=== PATIENT | female | born 1980 ===

== ENCOUNTER 2020-04-09 21:04 | Emergency (ER) | payer SELFPAY ==
--- NOTE | 2020-04-09 23:03 | EKG REPORT ---
SEVERITY:- ABNORMAL ECG - SINUS OR ECTOPIC ATRIAL RHYTHM SHORT AK INTERVAL, ACCELERATED AV CONDUCTION : Confirmed by: Eleazar Del Toro MD 09-Apr-2020 23:02:35
--- NOTE | 2020-04-09 23:18 | RADIOLOGY REPORT (SQ) ---
EXAM DESCRIPTION: XR CHEST 2 VIEWS COMPLETED DATE/TME: 04/09/2020 22:52 CLINICAL HISTORY: chest pain, sob COMPARISON: None. FINDINGS: Single frontal radiograph view of the chest. Cardiomediastinal silhouette: Normal size and contour. Lungs: No consolidation, pneumothorax, or pleural effusion. Hyperinflation. Bones: No acute osseous abnormality. Upper abdomen: No abnormality identified. IMPRESSION: 1. No acute pneumonic process identified. 2. Hyperinflation of the lungs. This could be seen with reactive airways disease or obstructive lung disease
[2020-04-09 23:29] LABS: ABSOLUTE BASOPHILS # (AUTO) 0.1 10^3/uL (0.0-0.2); ABSOLUTE EOSINOPHILS # (AUTO) 0.4 10^3/uL (0.0-0.6); ABSOLUTE LYMPHOCYTES (AUTO) 3.9 10^3/uL (0.5-4.7); ABSOLUTE MONOCYTES (AUTO) 0.8 10^3/uL (0.1-1.4); ABSOLUTE NEUT (AUTO) 4.8 10^3/uL (1.7-8.2); BASOPHILS % (AUTO) 0.9 % (0-2); EOSINOPHILS % (AUTO) 3.8 % (0-6); HEMATOCRIT 43.9 % (36.0-47.0); HEMOGLOBIN 14.8 g/dL (12.0-15.5); LYMPHOCYTES % (AUTO) 39.2 % (13-45); MEAN CORPUSCULAR HEMOGLOBIN 31.6 pg (27.0-33.4); MEAN CORPUSCULAR HGB CONC 33.8 g/dL (32.0-36.0); MEAN CORPUSCULAR VOLUME 93 fl (80-97); MONOCYTES % (AUTO) 7.7 % (3-13); PLATELET COUNT 226 10^3/uL (150-450); RED CELL DISTRIBUTION WIDTH 12.8 % (11.5-14.0); SEGMENTED NEUTROPHILS % (AUTO) 48.4 % (42-78); TOTAL CELLS COUNTED % (AUTO) 100 %
[2020-04-09 23:52] LABS: ALBUMIN 4.7 g/dL (3.5-5.0); ALKALINE PHOSPHATASE 51 U/L (38-126); ANION GAP 9 (5-19); ASPARTATE AMINO TRANSFERASE 17 U/L (14-36); BILIRUBIN,DIRECT 0.1 mg/dL (0.0-0.4); BILIRUBIN,TOTAL 0.2 mg/dL (0.2-1.3); BLOOD UREA NITROGEN 9 mg/dL (7-20); CARBON DIOXIDE 26 mmol/L (22-30); CHLORIDE 102 mmol/L (98-107); CREATINE KINASE 60 U/L (30-135); GLUCOSE 81 mg/dL (75-110); POTASSIUM 4.2 mmol/L (3.6-5.0); TOTAL PROTEIN 7.7 g/dL (6.3-8.2)
--- NOTE | 2020-04-10 00:01 | ER Document Report ---
ED Medical Screen (RME) - General Chief Complaint: Chest Pain Stated Complaint: CHEST PAIN Time Seen by Provider: 04/09/20 23:43 Notes: Patient presents to the ER for evaluation of chest tightness with pleuritic lung pain that began last . The patient admits to a mild dry cough. She states she has a history of asthma and has used albuterol nebs with some improvement. She denies fever. She denies chills. She denies body aches. She denies known exposures to individuals with COVID-19. Exam- CONSTITUTIONAL: Well appearing in no acute distress PULMONARY: Normal chest rise and fall, no respiratory distress or stridor CARDIOVASCULAR: Regular rate, distal extremities are warm and well perfused I have greeted and performed a rapid initial assessment of this patient. A comprehensive ED assessment and evaluation of the patient, analysis of test results and completion of the medical decision making process will be conducted by additional ED providers. Dictation of this chart was performed using voice recognition software; therefore, there may be some unintended grammatical errors. - Related Data Allergies/Adverse Reactions: Sulfa (Sulfonamide Antibiotics) Allergy (Verified 04/09/20 22:39) Home Medications: prozac, florna, prozosin, advair, spiriva, albuterol Past Medical History - Social History Frequency of alcohol use: None Drug Abuse: None Physical Exam - Vital signs Vitals: Temp Pulse Resp BP Pulse Ox 98.6 F 98 20 113/72 98 04/09/20 21:14 04/09/20 21:14 04/09/20 21:14 04/09/20 21:14 04/09/20 21:14 Course - Vital Signs Vital signs: Temp Pulse Resp BP Pulse Ox 98.6 F 98 20 113/72 98 04/09/20 21:14 04/09/20 21:14 04/09/20 21:14 04/09/20 21:14 04/09/20 21:14 - Laboratory Result Diagrams: 04/09/20 23:15 04/09/20 23:15
[2020-04-10 00:04] LABS: TROPONIN I < 0.012 ng/mL
--- NOTE | 2020-04-10 01:41 | ER Document Report ---
ED Cardiac - General Chief Complaint: Chest Pain Stated Complaint: CHEST PAIN Time Seen by Provider: 04/09/20 23:43 Mode of Arrival: Ambulatory Information source: Patient Notes: ED Medical Screen ([facility]) - General Chief Complaint: Chest Pain Stated Complaint: CHEST PAIN Time Seen by Provider: 04/09/20 23:43 Notes: Patient presents to the ER for evaluation of chest tightness with pleuritic lung pain that began last . The patient admits to a mild dry cough. She states she has a history of asthma and has used albuterol nebs with some imp rovement. She denies fever. She denies chills. She denies body aches. She denies known exposures to individuals with COVID-19. Exam- CONSTITUTIONAL: Well appearing in no acute distress PULMONARY: Normal chest rise and fall, no respiratory distress or stridor CARDIOVASCULAR: Regular rate, distal extremities are warm and well perfused MY NOTES 39-year-old female who works at the [employer] complains of cold-induced asthma and COPD. She was diagnosed at age 34 with COPD but a meat hostess at [facility] advised her she has reactive airway disease. Patient reports she been having diffuse midsternal and epigastric pain for several days. She has been using her inhaler quite frequently since last 1 week ago. Chest x-ray today reveals inte rstitial pattern and COPD-like pattern per radiologist. - Related Data Allergies/Adverse Reactions: Sulfa (Sulfonamide Antibiotics) Allergy (Verified 04/09/20 22:39) Home Medications: prozac, florna, prozosin, advair, spiriva, albuterol Past Medical History - General Information source: Patient - Social History Smoking Status: Current Every Day Smoker Cigarette use (# per day): Yes Chew tobacco use (# tins/day): No Smoking Education Provided: Yes Frequency of alcohol use: None Drug Abuse: None Lives with: Family Family History: Reviewed & Not Pertinent Patient has suicidal ideation: No Patient has homicidal ideation: No Review of Systems - Review of Systems Constitutional: No symptoms reported EENT: No symptoms reported Cardiovascular: No symptoms reported Respiratory: See HPI, Cough, Hurts to breathe, Wheezing Gastrointestinal: No symptoms reported Genitourinary: No symptoms reported Female Genitourinary: No symptoms reported Musculoskeletal: No symptoms reported Skin: No symptoms reported Hematologic/Lymphatic: No symptoms reported Neurological/Psychological: No symptoms reported Physical Exam - Vital signs Vitals: Temp Pulse Resp BP Pulse Ox 98.6 F 98 20 113/72 98 04/09/20 21:14 04/09/20 21:14 04/09/20 21:14 04/09/20 21:14 04/09/20 21:14 Interpretation: Hypotensive - General General appearance: Appears well, Alert - HEENT Head: Normocephalic, Atraumatic Eyes: Normal Pupils: PERRL - Respiratory Respiratory status: No respiratory distress Chest status: Nontender Breath sounds: Wheezing - Occasional wheezing Chest palpation: Normal - Cardiovascular Rhythm: Regular Heart sounds: Normal auscultation Murmur: No - Abdominal Inspection: Normal Distension: No distension Bowel sounds: Normal Tenderness: Nontender Organomegaly: No organomegaly - Rectal Hemorrhoids: Other - Deferred - Genitourinary Bimanuel exam: Other - Deferred - Back Back: Normal, Nontender - Extremities General upper extremity: Normal inspection, Nontender, Normal color, Normal ROM, Normal temperature General lower extremity: Normal inspection, Nontender, Normal color, Normal ROM, Normal temperature, Normal weight bearing. No: Camille's sign - Neurological Neuro grossly intact: Yes Cognition: Normal Orientation: AAOx4 Kalyn Coma Scale Eye Opening: Spontaneous Donnellson Coma Scale Verbal: Oriented Donnellson Coma Scale Motor: Obeys Commands Kalyn Coma Scale Total: 15 Speech: Normal Motor strength normal: LUE, RUE, LLE, RLE Sensory: Normal - Psychological Associated symptoms: Normal affect, Normal mood - Skin Skin Temperature: Warm Skin Moisture: Dry Skin Color: Normal Course - Vital Signs Vital signs: Temp Pulse Resp BP Pulse Ox 98.6 F 98 21 H 97/58 L 98 04/09/20 21:14 04/09/20 21:14 04/10/20 01:30 04/10/20 01:30 04/09/20 21:14 - Laboratory Result Diagrams: 04/09/20 23:15 04/09/20 23:15 - Diagnostic Test Radiology reviewed: Reports reviewed Discharge - Discharge Clinical Impression: Cold-induced asthma Qualifiers: Asthma severity: mild Asthma persistence: intermittent Asthma complication type: with acute exacerbation Qualified Code(s): J45.21 - Mild intermittent a sthma with (acute) exacerbation Disposition: HOME, SELF-CARE Additional Instructions: Follow-up with personal doctor this week return to ER as needed off work as directed encourage fluids Prescriptions: Dexamethasone [Decadron 4 Mg Tablet] 4 mg PO DAILY #5 tablet Famotidine [Pepcid 20 mg Tablet] 20 mg PO BID #12 tablet Azithromycin [Zithromax 250 mg Tablet] 250 mg PO ASDIR PRN #6 tablet PRN Reason: Forms: Return to Work
[2020-04-10] MEDS ORDERED: AZITHROMYCIN 250 MG TABLET PO ONE (01:45)
[2020-04-10] MEDS ORDERED: DEXAMETHASONE 4 MG TABLET PO ONE (01:45)
[2020-04-10] MEDS ORDERED: FAMOTIDINE 20 MG TABLET PO ONE (01:46)
[2020-04-10 03:01] VITALS: BP 100/59
== END 2020-04-10 03:02 | disposition home or self-care (01) ==
LOC: ER 21:04
DX: J45.21 Mild intermittent asthma with (acute) exacerbation (principal); R07.9 Chest pain, unspecified; R07.81 Pleurodynia; R05 Cough; R10.13 Epigastric pain; Z88.2 Allergy status to sulfonamides; Z79.899 Other long term (current) drug therapy; F17.210 Nicotine dependence, cigarettes, uncomplicated
CPT/HCPCS: 93005; 99283; 36415; 82553; 82550; 85025; 80053; 84484; 85379; 71046; 93010; J8540